=== PATIENT | female | born 1945 | race Caucasian/White ===

== ENCOUNTER 2016-12-23 18:43 | Emergency (ER) | payer MEDICARE ==
[~2016-12-23] VITALS: Ht 157.5 cm; Wt 59.0 kg
[~2016-12-23 18:43] MED LIST: ACET-709 PO; CALC500T26 PO; CHOL200012 PO; DOXY25TA PO; ESTR0.5T PO; ESTR1PAT10 TD; MAGN200T PO; MELO-184 PO; MILN50TA PO; TRAM50TA2 PO; VIVELLE TD; ZOLP10TA PO; ZOLP10TA5 PO
[2016-12-23] MEDS ORDERED: SODIUM CHLORIDE 0.9% 1,000ML IVBOLUS ONE (19:30)
[2016-12-23] MEDS ORDERED: FAMOTIDINE 20 MG/2 ML IVP ONE (19:30)
[2016-12-23] MEDS ORDERED: ONDANSETRON 2MG/ML, 2ML IVPush ONE (19:30)
[2016-12-23 19:41] LABS: HEMOGLOBIN 15.1 g/dL (11.7-16.4)
[2016-12-23 19:52] LABS: ASPARTATE AMINO TRANSFERASE 89 U/L (15-37); BLOOD UREA NITROGEN 18 mg/dL (7-18)
[2016-12-23] MEDS ORDERED: ONDANSETRON 2MG/ML, 2ML ONE (19:55)
[2016-12-23] MEDS ORDERED: FAMOTIDINE 20 MG/2 ML ONE (19:55)
[2016-12-23 20:05] LABS: IS PT STATUS REG ER OR PRE ER? YES
[2016-12-23 21:06] LABS: ICTOTEST NEGATIVE
[2016-12-23] MEDS ORDERED: POTASSIUM CHLORIDE 20 MEQ TAB.ER.PRT PO ONE (22:00)
[2016-12-23 22:57] VITALS: BP 157/67
== END 2016-12-23 22:59 | disposition home or self-care (01) ==
LOC: ED 19:27
DX: R55 Syncope and collapse (principal); R11.2 Nausea with vomiting, unspecified; N30.90 Cystitis, unspecified without hematuria; Z90.710 Acquired absence of both cervix and uterus; Z90.721 Acquired absence of ovaries, unilateral
CPT/HCPCS: 36415; 74022; 80053; 81001; 83690; 84484; 85025; 87077; 87086; 87186; 93005; 96361; 96374; 96375; 99285; J2405; J7030; S0028

== ENCOUNTER → 2018-01-22 | Outpatient (CLI) | payer MEDICARE ==
[~2018-01-22] MED LIST changes: -CALC500T26 PO; +CALC500T93 PO; -CHOL200012 PO; +CHOL200074 PO; -DOXY25TA PO; +DOXY25TA45 PO; -MELO-184 PO; +MELO15TA24 PO; +REGADENOSON 0.4 MG/5 ML SYRINGE ONE
== END | disposition home or self-care (01) ==
LOC: RAD 07:27
PROVIDERS: ATTEND Internal Medicine Cardiovascular Disease
DX: I07.1 Rheumatic tricuspid insufficiency (principal); I73.9 Peripheral vascular disease, unspecified; I10 Essential (primary) hypertension; Z98.82 Breast implant status
CPT/HCPCS: 78452; 93017; 93306; A9502; C9898; J2785

== ENCOUNTER 2019-08-13 20:30 | Emergency (ER) | payer MEDICARE ==
[~2019-08-13] VITALS: Ht 157.5 cm; Wt 60.7 kg
[~2019-08-13 20:30] MED LIST changes: -REGADENOSON 0.4 MG/5 ML SYRINGE ONE
--- NOTE | 2019-08-13 21:15 | NUR ---
PT ARRVIES TO ED WITH EPIGASTRIC PAIN X 2 DAYS. PT REPORTS SEVERE BURING AND NOTHING SEEMS TO MAKING IT BETTER. PT CONNECTED TO MONITORS AND CALL LIGHT IN REACH. PT REPORTS EXTENISVE GI HX AND SURGERIES TO ESOPHAGUS. PT REPORTS EPIGASTRIC PAIN IS WORSE WITH EATING WELL. Addendum: 08/13/19 at 2236 by DANIELE DONE UNDER WRONG USER NAME.
[2019-08-13] MEDS ORDERED: FAMOTIDINE 20 MG/2 ML ONE (21:22)
[2019-08-13] MEDS ORDERED: ONDANSETRON 2MG/ML, 2ML ONE (21:22)
[2019-08-13] MEDS ORDERED: MAALOX/HYOSCYAMINE/LIDOCAINE 45 ML BTL ONE (21:22)
[2019-08-13] MEDS ORDERED: MAALOX/HYOSCYAMINE/LIDOCAINE 45 ML BTL PO ONE (21:30)
[2019-08-13] MEDS ORDERED: PANTOPRAZOLE 40 MG IV IV ONE (21:30)
[2019-08-13] MEDS ORDERED: ONDANSETRON 2MG/ML, 2ML IVPush ONE (21:30)
[2019-08-13] MEDS ORDERED: SODIUM CHLORIDE FLUSH 10ML SYR IVF ONE (21:30)
[2019-08-13] MEDS ORDERED: PANTOPRAZOLE 40 MG IV ONE (21:40)
[2019-08-13 21:43] LABS: BASOPHILS # (AUTO) 0.02 x10^3/uL (0-0.1); BASOPHILS % (AUTO) 0 % (0-1); EOSINOPHILS # (AUTO) 0.15 x10^3/uL (0-0.4); EOSINOPHILS % (AUTO) 3 % (1-7); LYMPHOCYTES # (AUTO) 1.53 x10^3/uL (1-3.4); LYMPHOCYTES % (AUTO) 25 % (22-44); MD NO; MEAN CORPUSCULAR HEMOGLOBIN 30.7 pg (27.0-34.8); MEAN CORPUSCULAR HGB CONC 33.3 g/dL (32.4-35.8); MEAN CORPUSCULAR VOLUME 92.1 fL (80-100); MEAN PLATELET VOLUME 7.6 fL (7.4-10.4); MONOCYTES # (AUTO) 0.47 x10^3/uL (0.2-0.8); MONOCYTES % (AUTO) 8 % (2-9); NEUTROPHILS # (AUTO) 3.91 x10^3/uL (1.8-6.8); NEUTROPHILS % (AUTO) 64 % (42-75); PLATELET COUNT 287 x10^3/uL (130-400); RED BLOOD COUNT 4.66 x10^6/uL (3.82-5.3); RED CELL DISTRIBUTION WIDTH 13.6 % (9.6-15.2)
[2019-08-13 21:55] LABS: ALANINE AMINOTRANSFERASE 19 U/L (12-78); ALBUMIN 3.7 g/dL (3.4-5.0); ANION GAP 6 mmol/L (5-15); CALCIUM 9.5 mg/dL (8.5-10.1); CHLORIDE 112 mmol/L (98-107); CREATININE 0.86 mg/dL (0.55-1.02)
[2019-08-13 21:58] LABS: ALKALINE PHOSPHATASE 106 U/L (45-117); BILIRUBIN,TOTAL 0.4 mg/dL (0.2-1.0); TOTAL PROTEIN 7.3 g/dL (6.4-8.2)
--- NOTE | 2019-08-13 22:15 | NUR ---
BREAK RN: PT AMBULATORY TO RESTROOM. BACK TO BED WITHOUT ASSISTANCE. PT DENIES ANY NEEDS AT THIS TIME. AT BEDSIDE
[2019-08-13 22:18] VITALS: BP 148/68
--- NOTE | 2019-08-13 22:47 | NUR ---
PT MEDICATED PER EMAR.
[2019-08-13 23:06] LABS: TROPONIN I < 0.015 ng/mL (0.000-0.045)
--- NOTE | 2019-08-13 23:55 | NUR ---
Patient/Caregiver given discharge instructions and they have confirmed that they understand the instructions. Patient ambulatory with steady gait.
== END 2019-08-14 00:14 | disposition home or self-care (01) ==
LOC: ED 21:23
DX: K29.01 Acute gastritis with bleeding (principal); K59.00 Constipation, unspecified; K21.9 Gastro-esophageal reflux disease without esophagitis; R10.13 Epigastric pain; R10.12 Left upper quadrant pain; Z90.710 Acquired absence of both cervix and uterus
CPT/HCPCS: 36415; 74022; 80053; 83690; 84484; 85025; 93005; 96374; 96375; 99284; C9113; J2405

== ENCOUNTER 2019-10-11 07:32 | Outpatient (CLI) | payer MEDICARE | END 2019-10-11 23:59 | disposition home or self-care (01) | LOC: RAD 07:32 | PROVIDERS: ATTEND Internal Medicine Gastroenterology | DX: T18.2XXA Foreign body in stomach, initial encounter (principal); X58.XXXA Exposure to other specified factors, initial encounter; Y93.89 Activity, other specified; Y92.89 Other specified places as the place of occurrence of the external cause; Y99.8 Other external cause status; K44.9 Diaphragmatic hernia without obstruction or gangrene; K21.9 Gastro-esophageal reflux disease without esophagitis; M41.56 Other secondary scoliosis, lumbar region | CPT/HCPCS: 74240 ==

== ENCOUNTER 2019-10-16 09:22 | Outpatient (CLI) | payer MEDICARE | END 2019-10-16 23:59 | disposition home or self-care (01) | LOC: RAD 09:22 | PROVIDERS: ATTEND Internal Medicine Gastroenterology | DX: T18.2XXA Foreign body in stomach, initial encounter (principal); K44.9 Diaphragmatic hernia without obstruction or gangrene; K30 Functional dyspepsia; X58.XXXA Exposure to other specified factors, initial encounter; Y93.89 Activity, other specified; Y92.89 Other specified places as the place of occurrence of the external cause; Y99.8 Other external cause status | CPT/HCPCS: 78264; A9541 ==

== ENCOUNTER 2019-10-29 13:21 | Outpatient (CLI) | payer MEDICARE ==
[2019-10-29 13:54] LABS: CREATININE 0.93 mg/dL (0.55-1.02)
== END 2019-10-29 23:59 | disposition home or self-care (01) ==
LOC: LAB 13:21
PROVIDERS: ATTEND Internal Medicine Gastroenterology
DX: Z01.812 Encounter for preprocedural laboratory examination (principal)
CPT/HCPCS: 36415; 82565; 84520

== ENCOUNTER → 2019-10-30 | Outpatient (CLI) | payer MEDICARE ==
[~2019-10-30] MED LIST changes: +OMNIPAQUE 350 MG/ML, 100ML BOTTLE ONE
== END | disposition home or self-care (01) ==
LOC: CFH 09:00
PROVIDERS: ATTEND Internal Medicine Gastroenterology
DX: K44.9 Diaphragmatic hernia without obstruction or gangrene (principal); K57.30 Diverticulosis of large intestine without perforation or abscess without bleeding; M51.37 Other intervertebral disc degeneration, lumbosacral region; K76.0 Fatty (change of) liver, not elsewhere classified; I25.10 Atherosclerotic heart disease of native coronary artery without angina pectoris; N28.1 Cyst of kidney, acquired; I70.0 Atherosclerosis of aorta; K43.9 Ventral hernia without obstruction or gangrene; M41.86 Other forms of scoliosis, lumbar region; Z98.82 Breast implant status
CPT/HCPCS: 74177; Q9967

== ENCOUNTER 2020-03-25 07:21 | Day surgery (SDC) | payer MEDICARE ==
[~2020-03-25] VITALS: Ht 157.5 cm; Wt 58.6 kg
[~2020-03-25 07:21] MED LIST changes: -OMNIPAQUE 350 MG/ML, 100ML BOTTLE ONE
[2020-03-25] MEDS ORDERED: LACTATED RINGERS 1,000 ML IV SCH (07:44)
[2020-03-25 07:59] VITALS: BP 187/74
[2020-03-25] MEDS ORDERED: CHLORHEXIDINE 15 ML UDC MM ONE (08:00)
[2020-03-25 08:15] VITALS: BP 187/74
[2020-03-25] MEDS ORDERED: PLEASE ENTER HEIGHT AND WEIGHT MC SCH (08:30)
[2020-03-25] MEDS ORDERED: AMLO10TA8 PO (08:49)
[2020-03-25] MEDS ORDERED: FAMO20TA7 PO (08:49)
[2020-03-25] MEDS ORDERED: ANTI ACID PO (08:49)
[2020-03-25] MEDS ORDERED: LACT1CAP43 PO (08:49)
[2020-03-25] MEDS ORDERED: LOSA50TA14 PO (08:49)
[2020-03-25] MEDS ORDERED: ATOR40TA78 PO (08:49)
[2020-03-25] MEDS ORDERED: [UNRECOGNIZED DRUG - OTHER] PO (08:49)
[2020-03-25] MEDS ORDERED: VITAMIN D PO (08:49)
[2020-03-25] MEDS ORDERED: CALCIUM GUMMY PO (08:53)
[2020-03-25 09:06] LABS: ANION GAP 6 mmol/L (5-15); CALCIUM 9.8 mg/dL (8.5-10.1); CHLORIDE 112 mmol/L (98-107)
[2020-03-25 09:10] LABS: ALANINE AMINOTRANSFERASE 20 U/L (12-78); ALKALINE PHOSPHATASE 126 U/L (45-117); BILIRUBIN,TOTAL 0.7 mg/dL (0.2-1.0); CREATININE 0.86 mg/dL (0.55-1.02); TOTAL PROTEIN 7.6 g/dL (6.4-8.2)
[2020-03-25] MEDS ORDERED: PROPOFOL 10 MG/ML, 50ML ONE (09:15)
[2020-03-25] MEDS ORDERED: ONDANSETRON 2MG/ML, 2ML IVPush PRN (10:00)
[2020-03-25] MEDS ORDERED: DIPHENHYDRAMINE 50 MG/ML, 1ML IVPush PRN (10:00)
[2020-03-25] MEDS ORDERED: hydrALAzine 20 MG/ML, 1ML IV PRN (10:00)
[2020-03-25] MEDS ORDERED: PROMETHAZINE 25 MG/ML, 1ML IVPush PRN (10:00)
[2020-03-25] MEDS ORDERED: FENTANYL PF 100 MCG/2ML IV PRN (10:00)
[2020-03-25] MEDS ORDERED: LABETALOL 5MG/ML, 20ML IV PRN (10:00)
[2020-03-25] MEDS ORDERED: MEPERIDINE/PF 25MG/0.5ML IVPush PRN (10:00)
[2020-03-25] MEDS ORDERED: HYDROmorphone 1 MG/ML, 1ML INJ IVPush PRN (10:00)
[2020-03-25] MEDS ORDERED: ALBUTEROL SULFATE 2.5 MG/3 ML NPPB PRN (10:00)
[2020-03-25] MEDS ORDERED: EPHEDRINE 50 MG/ML, 1ML IVPush PRN (10:00)
[2020-03-25] MEDS ORDERED: OXYcodone 5 MG/5 ML ORAL.SOL UDC PO PRN (10:00)
[2020-03-25] MEDS ORDERED: PROMETHAZINE 12.5 MG SUPP PR PRN (10:00)
== END 2020-03-25 11:51 | disposition home or self-care (01) ==
LOC: OUT 07:21
PROVIDERS: ATTEND Internal Medicine
DX: Z12.11 Encounter for screening for malignant neoplasm of colon (principal); Z11.59 Encounter for screening for other viral diseases; K57.30 Diverticulosis of large intestine without perforation or abscess without bleeding; K21.9 Gastro-esophageal reflux disease without esophagitis; K44.9 Diaphragmatic hernia without obstruction or gangrene; K20.9 Esophagitis, unspecified; I10 Essential (primary) hypertension; E78.5 Hyperlipidemia, unspecified; Z79.899 Other long term (current) drug therapy; Z86.010 Personal history of colon polyps; Z88.0 Allergy status to penicillin; Z88.8 Allergy status to other drugs, medicaments and biological substances
CPT/HCPCS: 36415; 43235; 80053; 87635; 93005; G0105; J2704; J7120; U0001

== ENCOUNTER → 2020-11-17 | Outpatient (CLI) | payer MEDICARE ==
[~2020-11-17] MED LIST changes: +AMLO-211 PO; +ANTI ACID PO; +ATOR40TA78 PO; +CALCIUM GUMMY PO; +FAMO20TA7 PO; +LACT1CAP43 PO; +LOSA50TA14 PO; +VITAMIN D PO; +[UNRECOGNIZED DRUG - OTHER] PO
== END | disposition home or self-care (01) ==
LOC: RAD 10:31
PROVIDERS: ATTEND Internal Medicine
DX: K31.89 Other diseases of stomach and duodenum (principal)
CPT/HCPCS: 78264; A9541

== ENCOUNTER 2021-05-20 13:48 | Emergency (ER) | payer MEDICARE ==
[~2021-05-20] VITALS: Ht 165.1 cm; Wt 59.0 kg
[2021-05-20] MEDS ORDERED: SODIUM CHLORIDE FLUSH 10ML SYR IVF ONE (14:00)
[2021-05-20 14:56] LABS: BASOPHILS % (AUTO) 1 % (0-1); EOSINOPHILS % (AUTO) 1 % (1-7); LYMPHOCYTES % (AUTO) 13 % (22-44); MEAN CORPUSCULAR HEMOGLOBIN 30.3 pg (27.0-34.8); MEAN CORPUSCULAR HGB CONC 33.9 g/dL (32.4-35.8); MEAN PLATELET VOLUME 7.5 fL (7.4-10.4); MONOCYTES % (AUTO) 7 % (2-9); NEUTROPHILS % (AUTO) 79 % (42-75); PLATELET COUNT 322 x10^3/uL (130-400); RED BLOOD COUNT 4.65 x10^6/uL (3.82-5.3); RED CELL DISTRIBUTION WIDTH 14.4 % (9.6-15.2)
[2021-05-20 15:04] LABS: ALANINE AMINOTRANSFERASE 17 U/L (12-78); ALBUMIN 3.4 g/dL (3.4-5.0); ANION GAP 4 mmol/L (5-15); CALCIUM 9.7 mg/dL (8.5-10.1); CHLORIDE 110 mmol/L (98-107)
[2021-05-20 15:09] LABS: ALKALINE PHOSPHATASE 132 U/L (45-117); BILIRUBIN,TOTAL 0.4 mg/dL (0.2-1.0); CREATININE 1.04 mg/dL (0.55-1.02); TOTAL PROTEIN 7.3 g/dL (6.4-8.2); TROPONIN I < 0.015 ng/mL (0.000-0.045)
[2021-05-20 15:51] LABS: MICROSCOPIC AUTO
--- NOTE | 2021-05-20 16:43 | NUR ---
fitness management director note: Pt to room from lobby.
[2021-05-20] MEDS ORDERED: OMNIPAQUE 350 MG/ML, 100ML BOTTLE ONE (17:47)
[2021-05-20] MEDS ORDERED: ONDANSETRON 4 MG TABLET PO ONE (20:00)
[2021-05-20] MEDS ORDERED: ONDANSETRON ODT 4 MG ONE (20:23)
[2021-05-20 21:11] VITALS: BP 164/79
== END 2021-05-20 21:14 | disposition home or self-care (01) ==
LOC: ED 14:00
DX: N30.00 Acute cystitis without hematuria (principal); K59.00 Constipation, unspecified; R10.84 Generalized abdominal pain; G89.29 Other chronic pain; K21.9 Gastro-esophageal reflux disease without esophagitis; Z85.41 Personal history of malignant neoplasm of cervix uteri
CPT/HCPCS: 36415; 74177; 80053; 81001; 83690; 84484; 85025; 87077; 87086; 87186; 99285; Q0162; Q9967